=== PATIENT | male | born 1975 | race Caucasian/White ===

== ENCOUNTER → 2016-10-20 | Outpatient (REF) ==
--- NOTE | 2016-10-20 10:09 | DI ---
EXAM: CHEST FRONTAL AND LATERAL VIEWS HISTORY: Annual screening, April. COMPARISON: 12/11/2014 FINDINGS: Heart size and mediastinal contour remain within normal limits. No acute infiltrates. Normal vascularity with no pleural fluid or pneumothorax. The bony thorax has no acute finding. IMPRESSION: No suspicious pulmonary opacities identified radiographically. No obvious change since prior study.
== END ==
LOC: RAD 09:35
DX: Z02.89 Encounter for other administrative examinations (principal)